=== PATIENT | female | born 1990 | race Two or more races ===

== ENCOUNTER 2024-04-12 10:03 | Observation (INO) | payer BC ==
[~2024-04-12] VITALS: Ht 157.5 cm; Wt 75.7 kg
[2024-04-12] MEDS ORDERED: PREN-96 PO (11:34)
== END 2024-04-12 11:56 | disposition home or self-care (01) ==
LOC: LDRP 10:03 → UNDOADMOB 10:03 → LDRP 10:17 → UNDODISOB 11:56
PROVIDERS: ADMIT Obstetrics & Gynecology; ATTEND Obstetrics & Gynecology
DX: O24.419 Gestational diabetes mellitus in pregnancy, unspecified control (principal); Z3A.31 31 weeks gestation of pregnancy
CPT/HCPCS: 59025; 76818; 81002; 82948; 82962; 94760; G0378

== ENCOUNTER 2024-04-15 14:09 | Observation (INO) | payer BC ==
[~2024-04-15 14:09] MED LIST: PREN-96 PO
== END 2024-04-15 21:19 | disposition home or self-care (01) ==
LOC: LDRP 19:57
PROVIDERS: ADMIT Obstetrics & Gynecology; ATTEND Obstetrics & Gynecology
DX: O24.419 Gestational diabetes mellitus in pregnancy, unspecified control (principal); Z3A.31 31 weeks gestation of pregnancy
CPT/HCPCS: 59025; 76818; 81002; 82948; 82962; 94760; G0378

== ENCOUNTER 2024-04-19 08:13 | Observation (INO) | payer BC ==
[2024-04-19] MEDS ORDERED: METF-370 PO (08:59)
== END 2024-04-19 09:34 | disposition home or self-care (01) ==
LOC: UNDOADMOB 08:13 → LDRP 08:13 → UNDODISOB 09:34
PROVIDERS: ADMIT Obstetrics & Gynecology; ATTEND Obstetrics & Gynecology
DX: O24.419 Gestational diabetes mellitus in pregnancy, unspecified control (principal); Z3A.32 32 weeks gestation of pregnancy; Z79.899 Other long term (current) drug therapy; Z98.890 Other specified postprocedural states
CPT/HCPCS: 59025; 76818; 81002; 82948; 82962; 94760; G0378

== ENCOUNTER 2024-04-22 08:00 | Observation (INO) | payer BC ==
[~2024-04-22] VITALS: Ht 157.5 cm; Wt 75.7 kg
[~2024-04-22 08:00] MED LIST changes: +METF-370 PO
[2024-04-22] MEDS: NIFEdipine 10 MG CAP PO ONE ×2 (09:57→11:30)
[2024-04-22] MEDS: LACTATED RINGER'S 1,000 ML IV ONE (11:35)
[2024-04-22] MEDS: TERBUTALINE SULFATE 1 MG/ML 1ML VIAL SC SCH (13:55)
== END 2024-04-22 14:45 | disposition home or self-care (01) ==
LOC: LDRP 08:00
PROVIDERS: ADMIT Obstetrics & Gynecology; ATTEND Obstetrics & Gynecology
DX: O24.419 Gestational diabetes mellitus in pregnancy, unspecified control (principal); O47.03 False labor before 37 completed weeks of gestation, third trimester; Z3A.32 32 weeks gestation of pregnancy; Z79.899 Other long term (current) drug therapy
CPT/HCPCS: 59025; 76805; 76818; 81002; 82962; 94760; 96360; 96361; 96372; G0378; J3105

== ENCOUNTER 2024-04-26 10:53 | Observation (INO) | payer BC ==
[2024-04-26] MEDS ORDERED: NIFE10CA52 PO (12:18)
== END 2024-04-26 12:38 | disposition home or self-care (01) ==
LOC: LDRP 10:53
PROVIDERS: ADMIT Obstetrics & Gynecology; ATTEND Obstetrics & Gynecology
DX: O24.419 Gestational diabetes mellitus in pregnancy, unspecified control (principal); O62.9 Abnormality of forces of labor, unspecified; Z3A.33 33 weeks gestation of pregnancy
CPT/HCPCS: 59025; 76818; 81002; 82948; 82962; 94760; G0378